=== PATIENT | male | born 1960 | race Caucasian/White ===

== ENCOUNTER 2017-11-22 11:04 | Observation (INO) | payer OTHER ==
[2017-11-22 12:07] LABS: ABNORMAL IP MESSAGE 1; HEMATOCRIT 37.9 % (42.0-52.0); HEMOGLOBIN 12.7 g/dl (14.0-18.0); MEAN CORPUSCULAR HEMOGLOBIN 35.2 pg (29.0-33.0); MEAN CORPUSCULAR HGB CONC 33.5 g/dl (32.0-37.0); MEAN PLATELET VOLUME 10.8 fl (7.4-10.4); PLATELET COUNT 54 10^3/UL (140-415); POSITIVE DIFF @See below; RED BLOOD COUNT 3.61 10^6/ul (4.70-6.10); RED CELL DISTRIBUTION WIDTH 14.3 % (11.5-14.5)
[2017-11-22 12:07] LABS: WHITE BLOOD COUNT 4.8 10^3/ul (4.8-10.8)
[2017-11-22 12:09] LABS: ADD MAN DIFF? YES
[2017-11-22 12:30] LABS: ANION GAP 13 (8-16); BLOOD UREA NITROGEN 10 mg/dl (7-20); CALCIUM 8.9 mg/dl (8.4-10.2); CARBON DIOXIDE 24 mmol/L (21-31); CHLORIDE 113 mmol/L (97-110); CREATININE 0.58 mg/dl (0.61-1.24); GLUCOSE 92 mg/dl (70-220); POTASSIUM 3.9 mmol/L (3.5-5.1); SODIUM 146 mmol/L (135-144)
[2017-11-22 12:38] LABS: ANISOCYTOSIS 1+ (0-0); BAND NEUTROPHILS #M 0.4 10^3/ul (0.0-0.6); BAND NEUTROPHILS % (M) 9 % (0-4); EOSINOPHILS % (M) 1 % (0-7); HYPOCHROMASIA 1+ (0-0); LYMPHOCYTES #M 0.8 10^3/ul (0.8-2.9); LYMPHOCYTES % (M) 18 % (15-51); METAMYELOCYTES %M 2 % (0-0); MONOCYTE #M 0.5 10^3/ul (0.3-0.9); MONOCYTES % (M) 11 % (0-11); MYELOCYTES % (M) 2 % (0-0); PLATELET ESTIMATE DECREASED; POLYCHROMASIA 1+ (0-0); SEG NEUT #M 2.8 10^3/ul (1.6-7.5); SEGMENTED NEUTROPHILS (M) % 57 % (39-77); SMUDGE%M 4 % (0-0)
[2017-11-22 12:40] LABS: TROPONIN-I < 0.012 ng/ml (0.00-0.12)
[2017-11-22] MEDS ORDERED: NACL 0.9% 3 ML SYG IV (14:00)
[2017-11-22] MEDS ORDERED: HYDROCODONE/APAP (5/325) TAB PO (14:00)
[2017-11-22] MEDS ORDERED: morphine 2 MG INJ IV (14:00)
[2017-11-22] MEDS ORDERED: ONDANSETRON 4 MG INJ IV (14:00)
[2017-11-22 14:28] LABS: ALANINE AMINOTRANSFERASE 40 IU/L (13-69); ALBUMIN 3.6 g/dl (3.3-4.9); ALKALINE PHOSPHATASE 211 IU/L (42-121); ASPARTATE AMINO TRANSFERASE 105 IU/L (15-46); BILIRUBIN,INDIRECT 2.9 mg/dl (0-1.1); BILIRUBIN,TOTAL 3.4 mg/dl (0.2-1.3); TOTAL PROTEIN 8.6 g/dl (6.1-8.1)
[2017-11-22 14:32] LABS: C-REACTIVE PROTEIN 0.8 mg/dl (0.0-0.9)
[2017-11-22 14:37] LABS: LACTATE DEHYDROGENASE 617 IU/L (313-618)
[2017-11-22] MEDS ORDERED: morphine LIQ (10 MG/5 ML) CUP PO (15:15)
[2017-11-22] MEDS: GABAPENTIN 300 MG CAP PO ×2 (15:21→20:55)
[2017-11-22 15:23] LABS: ERYTHROCYTE SEDIMENTATION RATE 50 mm/Hr (0-20)
[2017-11-22 16:06] LABS: B-TYPE NATRIURETIC PEPTIDE 152 PG/ML (0-125)
[2017-11-22 16:46] LABS: FREE T4 (FREE THYROXINE) 1.92 ng/dl (0.64-1.79)
[2017-11-22 17:11] LABS: HIV 1&2 ANTIBODY NEGATIVE (NEGATIVE)
[2017-11-22 17:35] LABS: FOLATE 13.6 ng/ml (2.8-20.0)
[2017-11-22 18:12] LABS: HAAIG REFLEX REFLEX FILED
[2017-11-22 18:37] LABS: INR 1.53; PARTIAL THROMBOPLASTIN TIME 40.7 Sec (25.0-35.0); PROTIME 18.7 Sec (11.9-14.9); PT RATIO 1.5
[2017-11-22 18:42] LABS: CREATINE KINASE 170 IU/L (23-200)
[2017-11-22 18:53] LABS: CK INDEX 0.8
[2017-11-22 18:56] LABS: CK-MB 1.42 ng/ml (0.0-2.4); TROPONIN-I < 0.012 ng/ml (0.00-0.12)
[2017-11-22 19:11] LABS: HEPATITIS B SURFACE ANTIGEN NEGATIVE (NEGATIVE)
[2017-11-22 19:18] LABS: ALPHA FETOPROTEIN 7.43 IU/L (0.00-7.21)
[2017-11-22 19:29] LABS: HEPATITIS B CORE ANTIBODY NEGATIVE (NEGATIVE); HEPATITIS C VIRAL ANTIBODY NEGATIVE (NEGATIVE)
[2017-11-22] MEDS: ACETAMINOPHEN 325 MG TAB PO (23:35)
[2017-11-23 00:01] LABS: CREATINE KINASE 142 IU/L (23-200)
[2017-11-23 00:13] LABS: CK INDEX 0.7
[2017-11-23 00:14] LABS: CK-MB 0.99 ng/ml (0.0-2.4); TROPONIN-I < 0.012 ng/ml (0.00-0.12)
[2017-11-23 05:06] LABS: ADD MAN DIFF? NO
[2017-11-23 05:15] LABS: ABNORMAL IP MESSAGE 1; BASOPHIL # 0.1 10^3/ul (0.0-0.1); BASOPHILS % 1.4 % (0.0-2.0); EOSINOPHILS # 0.1 10^3/ul (0.0-0.5); EOSINOPHILS % 3.5 % (0.0-7.0); HEMATOCRIT 34.8 % (42.0-52.0); HEMOGLOBIN 11.8 g/dl (14.0-18.0); LYMPHOCYTES # 0.9 10^3/ul (0.8-2.9); LYMPHOCYTES % 26.3 % (15.0-51.0); MEAN CORPUSCULAR HEMOGLOBIN 35.4 pg (29.0-33.0); MEAN CORPUSCULAR HGB CONC 33.9 g/dl (32.0-37.0); MEAN CORPUSCULAR VOLUME 104.5 fl (82.0-101.0); MEAN PLATELET VOLUME 11.2 fl (7.4-10.4); MONOCYTE # 0.5 10^3/ul (0.3-0.9); MONOCYTES % 15.3 % (0.0-11.0); NEUTROPHIL # 1.8 10^3/ul (1.6-7.5); NEUTROPHILS % 52.9 % (39.0-77.0); PLATELET COUNT 42 10^3/UL (140-415); POSITIVE DIFF @See below; RED BLOOD COUNT 3.33 10^6/ul (4.70-6.10); RED CELL DISTRIBUTION WIDTH 14.5 % (11.5-14.5)
[2017-11-23 05:15] LABS: WHITE BLOOD COUNT 3.5 10^3/ul (4.8-10.8)
[2017-11-23 05:31] LABS: PHOSPHORUS 3.3 mg/dl (2.5-4.9)
[2017-11-23 05:31] LABS: CHOL/HDL RATIO 3.3 RATIO; CHOLESTEROL 90 mg/dl (100-200); HDL CHOLESTEROL 27 mg/dl (28-71); LDL CHOLESTEROL,CALCULATED 53 mg/dl; TRIGLYCERIDES 50 mg/dl (0-149)
[2017-11-23 05:34] LABS: INR 1.72; PROTIME 20.5 Sec (11.9-14.9); PT RATIO 1.6
[2017-11-23 05:35] LABS: PARTIAL THROMBOPLASTIN TIME 43.1 Sec (25.0-35.0)
[2017-11-23 05:37] LABS: HEMOGLOBIN A1C 4.7 % (0-5.9)
[2017-11-23 05:39] LABS: ALANINE AMINOTRANSFERASE 46 IU/L (13-69); ALBUMIN 2.7 g/dl (3.3-4.9); ALBUMIN/GLOBULIN RATIO 0.61; ALKALINE PHOSPHATASE 200 IU/L (42-121); ANION GAP 10 (8-16); ASPARTATE AMINO TRANSFERASE 88 IU/L (15-46); BLOOD UREA NITROGEN 10 mg/dl (7-20); CALCIUM 8.6 mg/dl (8.4-10.2); CARBON DIOXIDE 27 mmol/L (21-31); CHLORIDE 113 mmol/L (97-110); CREATININE 0.71 mg/dl (0.61-1.24); GLUCOSE 90 mg/dl (70-220); POTASSIUM 4.3 mmol/L (3.5-5.1); SODIUM 146 mmol/L (135-144); TOTAL PROTEIN 7.1 g/dl (6.1-8.1)
[2017-11-23] MEDS: BARIUM SULF 2% 450 ML BTL (BERRY SMOOTHIE) PO (06:22)
[2017-11-23] MEDS: SOD CHLORIDE 0.9% 100 ML (07:45)
[2017-11-23] MEDS: IOHEXOL 300MG/ML 150 ML BTL (07:45)
[2017-11-23] MEDS: GABAPENTIN 300 MG CAP PO ×2 (08:53→12:47)
[2017-11-23] MEDS ORDERED: INSULIN ASPART [NOVOLOG] 3 ML PEN SC (09:00)
[2017-11-24] MEDS ORDERED: ACCU-CHEK XX (02:00)
[2017-11-24 10:36] LABS: MITOCHONDRIAL TB NEGATIVE (NEGATIVE); SMOOTH MUSCLE AB SCREEN NEGATIVE (NEGATIVE)
[2017-11-24 12:53] LABS: HAPTOGLOBIN <15 mg/dL (43-212)
[2017-11-24 13:37] LABS: ANA SCREEN NEGATIVE (NEGATIVE)
== END 2017-11-23 15:19 | disposition home or self-care (01) ==
LOC: E/R 11:04 → MS3 13:01
DX: R07.89 Other chest pain (principal); K70.30 Alcoholic cirrhosis of liver without ascites; D53.9 Nutritional anemia, unspecified; D69.6 Thrombocytopenia, unspecified; G62.9 Polyneuropathy, unspecified
CPT/HCPCS: 36415; 71045; 74177; 76705; 80048; 80053; 80061; 80076; 82105; 82550; 82553; 82607; 82728; 82746; 83010; 83036; 83615; 83735; 83880; 84100; 84439; 84443; 84484; 85025; 85610; 85651; 85730; 86038; 86140; 86255; 86703; 86704; 86709; 86803; 87340; 93005; 93306; 99285-25

== ENCOUNTER 2018-08-28 11:58 | Observation (INO) | payer OTHER ==
[2018-08-28] MEDS: ONDANSETRON 4 MG INJ IV (12:55)
[2018-08-28] MEDS: NITROGLYCERIN 2% 1 GM OINT PKT TD (12:55)
[2018-08-28] MEDS: ASPIRIN 81 MG TAB PO (12:55)
[2018-08-28] MEDS: morphine 4 MG/ML VIAL IV (12:55)
[2018-08-28 13:05] LABS: ADD MAN DIFF? NO
[2018-08-28 13:08] LABS: WHITE BLOOD COUNT 6.5 10^3/ul (4.8-10.8)
[2018-08-28 13:08] LABS: ABNORMAL IP MESSAGE 1; BASOPHIL # 0.1 10^3/ul (0.0-0.1); BASOPHILS % 0.8 % (0.0-2.0); EOSINOPHILS # 0.1 10^3/ul (0.0-0.5); HEMOGLOBIN 11.7 g/dl (14.0-18.0); LYMPHOCYTES # 1.3 10^3/ul (0.8-2.9); MEAN CORPUSCULAR HEMOGLOBIN 34.4 pg (29.0-33.0); MEAN CORPUSCULAR HGB CONC 34.4 g/dl (32.0-37.0); MEAN PLATELET VOLUME 10.4 fl (7.4-10.4); MONOCYTE # 0.7 10^3/ul (0.3-0.9); NEUTROPHIL # 4.3 10^3/ul (1.6-7.5); NEUTROPHILS % 66.3 % (39.0-77.0); PLATELET COUNT 78 10^3/UL (140-415); POSITIVE DIFF @See below; RED CELL DISTRIBUTION WIDTH 15.2 % (11.5-14.5)
[2018-08-28 13:27] LABS: INR 1.66; PROTIME 19.7 Sec (11.9-14.9); PT RATIO 1.5
[2018-08-28 13:28] LABS: PARTIAL THROMBOPLASTIN TIME 45.1 Sec (23.0-35.0)
[2018-08-28 13:31] LABS: ALANINE AMINOTRANSFERASE 36 IU/L (13-69); ALKALINE PHOSPHATASE 226 IU/L (42-121); ANION GAP 5 (5-13); ASPARTATE AMINO TRANSFERASE 85 IU/L (15-46); BILIRUBIN,INDIRECT 3.5 mg/dl (0-1.1); BLOOD UREA NITROGEN 7 mg/dl (7-20); CALCIUM 8.4 mg/dl (8.4-10.2); CARBON DIOXIDE 24 mmol/L (21-31); CHLORIDE 110 mmol/L (97-110); CREATININE 0.64 mg/dl (0.61-1.24); Estimated GFR > 60 mL/min (>60); GLUCOSE 106 mg/dl (70-220); POTASSIUM 3.7 mmol/L (3.5-5.1); SODIUM 139 mmol/L (135-144)
[2018-08-28 13:32] LABS: ALBUMIN 2.9 g/dl (3.3-4.9); ALBUMIN/GLOBULIN RATIO 0.59; BILIRUBIN,TOTAL 3.9 mg/dl (0.2-1.3); TOTAL PROTEIN 7.8 g/dl (6.1-8.1)
[2018-08-28 13:42] LABS: TROPONIN-I < 0.012 ng/ml (0.000-0.120)
[2018-08-28] MEDS ORDERED: ACETAMINOPHEN 325 MG TAB PO ×2 (14:30→15:00)
[2018-08-28] MEDS ORDERED: ONDANSETRON 4 MG INJ IV ×2 (14:30→15:00)
[2018-08-28] MEDS ORDERED: DOCUSATE SODIUM 100 MG CAP PO (15:00)
[2018-08-28] MEDS ORDERED: ZOLPIDEM 5 MG TAB PO (15:00)
[2018-08-28] MEDS ORDERED: morphine 2 MG INJ IV (15:00)
[2018-08-28] MEDS ORDERED: NITROGLYCERIN (SL) 0.4 MG TAB SL (15:00)
[2018-08-28] MEDS ORDERED: NACL 0.9% 3 ML SYG IV (15:00)
[2018-08-28 15:25] LABS: HAAIG REFLEX REFLEX FILED
[2018-08-28 16:05] LABS: HEPATITIS B SURFACE ANTIGEN NEGATIVE (NEGATIVE)
[2018-08-28 16:23] LABS: HEPATITIS B CORE ANTIBODY NEGATIVE (NEGATIVE); HEPATITIS C VIRAL ANTIBODY NEGATIVE (NEGATIVE)
[2018-08-28 16:40] LABS: FOLATE 18.1 ng/ml (2.8-20.0)
[2018-08-28 17:34] LABS: ANISOCYTOSIS 1+ (0-0); BAND NEUTROPHILS % (M) 1 % (0-4); EOSINOPHILS % (M) 2 % (0-7); ERYTHROBLAST% (NRBC) (M) 3 % (0-0); GIANT THROMBO% (M) 1 % (0-0); LYMPHOCYTES % (M) 16 % (15-51); MONOCYTE #M 0.5 10^3/ul (0.3-0.9); MONOCYTES % (M) 8 % (0-11); MYELOCYTES % (M) 1 % (0-0); PLATELET ESTIMATE DECREASED; POIKILOCYTOSIS 1+ (0-0); POLYCHROMASIA 1+ (0-0); SEG NEUT #M 4.7 10^3/ul (1.6-7.5); SEGMENTED NEUTROPHILS (M) % 72 % (39-77); SMUDGE%M 4 % (0-0)
[2018-08-28] MEDS: HYDROCODONE/APAP (5/325) TAB PO (17:51)
[2018-08-28 18:59] LABS: TROPONIN-I < 0.012 ng/ml (0.000-0.120)
[2018-08-28 19:32] LABS: LIPASE 192 U/L (23-300)
[2018-08-28 19:32] LABS: AMYLASE 128 U/L (11-123)
[2018-08-28] MEDS: GABAPENTIN 300 MG CAP PO (20:50)
[2018-08-29 01:22] LABS: TROPONIN-I < 0.012 ng/ml (0.000-0.120)
[2018-08-29] MEDS: GABAPENTIN 300 MG CAP PO ×2 (08:00→13:25)
[2018-08-29 08:30] LABS: ADD MAN DIFF? NO
[2018-08-29 08:37] LABS: ABNORMAL IP MESSAGE 1; BASOPHILS % 0.6 % (0.0-2.0); EOSINOPHILS # 0.2 10^3/ul (0.0-0.5); EOSINOPHILS % 3.3 % (0.0-7.0); HEMATOCRIT 32.4 % (42.0-52.0); LYMPHOCYTES # 1.2 10^3/ul (0.8-2.9); LYMPHOCYTES % 22.4 % (15.0-51.0); MEAN CORPUSCULAR HEMOGLOBIN 34.5 pg (29.0-33.0); MEAN CORPUSCULAR VOLUME 101.6 fl (82.0-101.0); MEAN PLATELET VOLUME 10.9 fl (7.4-10.4); MONOCYTE # 0.6 10^3/ul (0.3-0.9); MONOCYTES % 11.6 % (0.0-11.0); NEUTROPHIL # 3.2 10^3/ul (1.6-7.5); NEUTROPHILS % 61.7 % (39.0-77.0); PLATELET COUNT 70 10^3/UL (140-415); POSITIVE DIFF @See below; RED BLOOD COUNT 3.19 10^6/ul (4.70-6.10); RED CELL DISTRIBUTION WIDTH 14.9 % (11.5-14.5)
[2018-08-29 08:37] LABS: WHITE BLOOD COUNT 5.2 10^3/ul (4.8-10.8)
[2018-08-29 08:52] LABS: CREATINE KINASE 98 IU/L (23-200)
[2018-08-29] MEDS ORDERED: ENOXAPARIN 40 MG/0.4 ML SYG SC (09:00)
[2018-08-29 09:04] LABS: CK-MB 0.97 ng/ml (0.0-2.4); TROPONIN-I < 0.012 ng/ml (0.000-0.120)
[2018-08-29 09:05] LABS: HEMOGLOBIN A1C 4.7 % (0-5.9)
[2018-08-29 09:13] LABS: MAGNESIUM 1.8 mg/dl (1.7-2.5)
[2018-08-29 09:13] LABS: PHOSPHORUS 2.9 mg/dl (2.5-4.9)
[2018-08-29 09:15] LABS: ALANINE AMINOTRANSFERASE 33 IU/L (13-69); ALBUMIN 2.5 g/dl (3.3-4.9); ALBUMIN/GLOBULIN RATIO 0.53; ALKALINE PHOSPHATASE 184 IU/L (42-121); ANION GAP 11 (5-13); ASPARTATE AMINO TRANSFERASE 68 IU/L (15-46); BILIRUBIN,INDIRECT 3.1 mg/dl (0-1.1); BILIRUBIN,TOTAL 3.3 mg/dl (0.2-1.3); BLOOD UREA NITROGEN 9 mg/dl (7-20); CALCIUM 8.3 mg/dl (8.4-10.2); CARBON DIOXIDE 23 mmol/L (21-31); CHLORIDE 108 mmol/L (97-110); CHOL/HDL RATIO 2.3 RATIO; CHOLESTEROL 93 mg/dl (100-200); Estimated GFR > 60 mL/min (>60); GLUCOSE 76 mg/dl (70-220); HDL CHOLESTEROL 39 mg/dl (28-71); LDL CHOLESTEROL,CALCULATED 44 mg/dl; POTASSIUM 4.4 mmol/L (3.5-5.1); SODIUM 142 mmol/L (135-144); TOTAL PROTEIN 7.2 g/dl (6.1-8.1); TRIGLYCERIDES 51 mg/dl (0-149)
[2018-08-29] MEDS: REGADENOSON 0.4 MG/5 ML SYG (09:30)
[2018-08-30] MEDS ORDERED: ASPIRIN 81 MG TAB PO (09:00)
== END 2018-08-29 16:49 | disposition home or self-care (01) ==
LOC: E/R 11:58 → TEL 14:16
DX: R07.9 Chest pain, unspecified (principal); D53.9 Nutritional anemia, unspecified; R74.0 Nonspecific elevation of levels of transaminase and lactic acid dehydrogenase [LDH]; G62.9 Polyneuropathy, unspecified; D69.6 Thrombocytopenia, unspecified; R94.31 Abnormal electrocardiogram [ECG] [EKG]; I10 Essential (primary) hypertension; K70.9 Alcoholic liver disease, unspecified
CPT/HCPCS: 36415; 71045; 76705; 78452; 80053; 80061; 82150; 82550; 82553; 82607; 82746; 83036; 83690; 83735; 84100; 84484; 85025; 85610; 85730; 86704; 86709; 86803; 87340; 93005; 93017; 93306; 96374; 96375; 99285-25; G0378

== ENCOUNTER 2018-09-27 06:42 | Emergency (ER) | payer OTHER ==
[2018-09-27 07:32] LABS: ADD MAN DIFF? NO
[2018-09-27 07:36] LABS: ABNORMAL IP MESSAGE 1; BASOPHIL # 0.1 10^3/ul (0.0-0.1); BASOPHILS % 0.9 % (0.0-2.0); EOSINOPHILS # 0.1 10^3/ul (0.0-0.5); EOSINOPHILS % 1.9 % (0.0-7.0); HEMATOCRIT 35.9 % (42.0-52.0); HEMOGLOBIN 12.5 g/dl (14.0-18.0); LYMPHOCYTES # 1.4 10^3/ul (0.8-2.9); LYMPHOCYTES % 21.8 % (15.0-51.0); MEAN CORPUSCULAR HEMOGLOBIN 34.5 pg (29.0-33.0); MEAN CORPUSCULAR HGB CONC 34.8 g/dl (32.0-37.0); MEAN CORPUSCULAR VOLUME 99.2 fl (82.0-101.0); MEAN PLATELET VOLUME 9.9 fl (7.4-10.4); MONOCYTE # 0.6 10^3/ul (0.3-0.9); NEUTROPHIL # 4.1 10^3/ul (1.6-7.5); NEUTROPHILS % 64.9 % (39.0-77.0); PLATELET COUNT 69 10^3/UL (140-415); POSITIVE DIFF @See below; RED BLOOD COUNT 3.62 10^6/ul (4.70-6.10); RED CELL DISTRIBUTION WIDTH 15.8 % (11.5-14.5)
[2018-09-27 07:36] LABS: WHITE BLOOD COUNT 6.4 10^3/ul (4.8-10.8)
[2018-09-27] MEDS: FAMOTIDINE 20 MG TAB PO (07:41)
[2018-09-27] MEDS: BELLADONNA/PHENOBARBITAL TAB PO (07:41)
[2018-09-27] MEDS: ONDANSETRON 4 MG INJ IV (07:41)
[2018-09-27] MEDS: LIDOCAINE/MYLANTA 40 ML BTL PO (07:41)
[2018-09-27] MEDS: SOD CHLORIDE 0.9% 1,000 ML IV (07:41)
[2018-09-27] MEDS: KETOROLAC 15 MG INJ IV (07:42)
[2018-09-27 07:55] LABS: ALANINE AMINOTRANSFERASE 23 IU/L (13-69); ALBUMIN 2.9 g/dl (3.3-4.9); ALBUMIN/GLOBULIN RATIO 0.54; ALKALINE PHOSPHATASE 342 IU/L (42-121); ANION GAP 8 (5-13); ASPARTATE AMINO TRANSFERASE 53 IU/L (15-46); BILIRUBIN,INDIRECT 2.8 mg/dl (0-1.1); BILIRUBIN,TOTAL 2.8 mg/dl (0.2-1.3); BLOOD UREA NITROGEN 6 mg/dl (7-20); CALCIUM 8.4 mg/dl (8.4-10.2); CARBON DIOXIDE 22 mmol/L (21-31); CHLORIDE 112 mmol/L (97-110); CREATININE 0.69 mg/dl (0.61-1.24); Estimated GFR > 60 mL/min (>60); GLUCOSE 106 mg/dl (70-220); LIPASE 85 U/L (23-300); POTASSIUM 3.4 mmol/L (3.5-5.1); SODIUM 142 mmol/L (135-144); TOTAL PROTEIN 8.2 g/dl (6.1-8.1)
[2018-09-27 08:02] LABS: ADD UMIC NO; ETHANOL < 10.0 mg/dl (0-0); UR ASCORBIC ACID NEGATIVE (NEGATIVE); UR BILIRUBIN (Dip) NEGATIVE (NEGATIVE); UR BLOOD (Dip) NEGATIVE (NEGATIVE); UR CALCIUM OXALATE CRYSTAL MANY /HPF (NONE SEEN); UR CLARITY SLIGHTLY CLOUDY (CLEAR); UR COLOR AMBER (YELLOW); UR GLUCOSE (Dip) NEGATIVE (NEGATIVE); UR KETONES (Dip) NEGATIVE (NEGATIVE); UR LEUKOCYTE ESTERASE (Dip) NEGATIVE Leu/ul (NEGATIVE); UR NITRITE (Dip) NEGATIVE (NEGATIVE); UR RBC 1 /HPF (0-5); UR SPECIFIC GRAVITY (Dip) 1.014 (1.003-1.030); UR TOTAL PROTEIN (Dip) NEGATIVE (NEGATIVE); UR UROBILINOGEN (Dip) 2+ mg/dL (NEGATIVE); UR WBC 3 /HPF (0-5)
[2018-09-27 08:06] LABS: INR 1.58; PT RATIO 1.5; TROPONIN-I < 0.012 ng/ml (0.000-0.120)
[2018-09-27 08:07] LABS: PARTIAL THROMBOPLASTIN TIME 43.1 Sec (23.0-35.0)
[2018-09-27] MEDS: PIPER-TAZO 3.375 GM IV (PMX) 100 ML IVPB (11:05)
== END 2018-09-27 12:52 | disposition left against medical advice (07) ==
LOC: E/R 06:42
DX: K81.9 Cholecystitis, unspecified (principal); R19.7 Diarrhea, unspecified; I10 Essential (primary) hypertension; Z87.891 Personal history of nicotine dependence
CPT/HCPCS: 36415; 74176; 76705; 80053; 80307; 81001; 81003; 83690; 84484; 85025; 85610; 85730; 93005; 96374; 96375; 99285-25

== ENCOUNTER 2018-09-28 07:00 | Inpatient (IN) | payer OTHER ==
[2018-09-28 09:12] LABS: ADD MAN DIFF? NO
[2018-09-28 09:14] LABS: WHITE BLOOD COUNT 5.2 10^3/ul (4.8-10.8)
[2018-09-28 09:14] LABS: ABNORMAL IP MESSAGE 1; BASOPHILS % 0.8 % (0.0-2.0); EOSINOPHILS # 0.1 10^3/ul (0.0-0.5); EOSINOPHILS % 2.5 % (0.0-7.0); HEMATOCRIT 34.9 % (42.0-52.0); HEMOGLOBIN 11.8 g/dl (14.0-18.0); LYMPHOCYTES # 1.2 10^3/ul (0.8-2.9); LYMPHOCYTES % 22.7 % (15.0-51.0); MEAN CORPUSCULAR HEMOGLOBIN 33.9 pg (29.0-33.0); MEAN CORPUSCULAR HGB CONC 33.8 g/dl (32.0-37.0); MEAN CORPUSCULAR VOLUME 100.3 fl (82.0-101.0); MEAN PLATELET VOLUME 10.8 fl (7.4-10.4); MONOCYTE # 0.6 10^3/ul (0.3-0.9); MONOCYTES % 12.2 % (0.0-11.0); NEUTROPHIL # 3.2 10^3/ul (1.6-7.5); NEUTROPHILS % 61.4 % (39.0-77.0); PLATELET COUNT 73 10^3/UL (140-415); POSITIVE DIFF @See below; RED BLOOD COUNT 3.48 10^6/ul (4.70-6.10); RED CELL DISTRIBUTION WIDTH 15.9 % (11.5-14.5)
[2018-09-28 09:36] LABS: ALANINE AMINOTRANSFERASE 22 IU/L (13-69); ALBUMIN 2.8 g/dl (3.3-4.9); ALBUMIN/GLOBULIN RATIO 0.57; ALKALINE PHOSPHATASE 346 IU/L (42-121); ANION GAP 6 (5-13); ASPARTATE AMINO TRANSFERASE 54 IU/L (15-46); BILIRUBIN,INDIRECT 2.7 mg/dl (0-1.1); BILIRUBIN,TOTAL 2.7 mg/dl (0.2-1.3); BLOOD UREA NITROGEN 9 mg/dl (7-20); CARBON DIOXIDE 27 mmol/L (21-31); CHLORIDE 111 mmol/L (97-110); CREATININE 0.75 mg/dl (0.61-1.24); Estimated GFR > 60 mL/min (>60); GLUCOSE 101 mg/dl (70-220); SODIUM 144 mmol/L (135-144); TOTAL PROTEIN 7.7 g/dl (6.1-8.1)
[2018-09-28] MEDS: PIPER-TAZO 3.375 GM IV (PMX) 100 ML IVPB (10:50)
[2018-09-28] MEDS ORDERED: SOD CHLORIDE 0.9% 1,000 ML IV (11:02)
[2018-09-28] MEDS ORDERED: ONDANSETRON 4 MG INJ IV (11:30)
[2018-09-28] MEDS ORDERED: ACETAMINOPHEN 325 MG TAB PO (11:30)
[2018-09-28 13:32] LABS: INR 1.61; PROTIME 19.2 Sec (11.9-14.9); PT RATIO 1.5
[2018-09-28 14:34] LABS: HEPATITIS C VIRAL ANTIBODY NEGATIVE (NEGATIVE)
[2018-09-28] MEDS ORDERED: LORAZEPAM 2 MG INJ IV (15:30)
[2018-09-28] MEDS: DEXTROSE 5%-0.45% NACL 1,000 ML IV (17:24)
[2018-09-28] MEDS: CHLORDIAZEPOXIDE 25 MG CAP PO (21:12)
[2018-09-29] MEDS ORDERED: MULTIVITAMINS 10 ML, THIAMINE 100 MG, FOLIC ACID 1 MG in SOD CHLORIDE 0.9% 1,000 ML IVPB (09:00)
== END 2018-09-28 21:41 | disposition left against medical advice (07) | DRG 446 ==
LOC: E/R 07:00 → 2NE 11:03
DX: K80.10 Calculus of gallbladder with chronic cholecystitis without obstruction (principal); K70.30 Alcoholic cirrhosis of liver without ascites; E80.6 Other disorders of bilirubin metabolism; Z72.0 Tobacco use; G62.9 Polyneuropathy, unspecified
CPT/HCPCS: 36415; 74181; 76705; 80053; 85025; 85610; 86803; 96374; 99285-25

== ENCOUNTER 2018-10-22 12:41 | Emergency (ER) | payer OTHER | END 2018-10-22 16:29 | disposition home or self-care (01) | LOC: FTE 12:41 | DX: S00.83XA Contusion of other part of head, initial encounter (principal); R07.89 Other chest pain; F17.210 Nicotine dependence, cigarettes, uncomplicated; W18.39XA Other fall on same level, initial encounter; Y92.9 Unspecified place or not applicable | CPT/HCPCS: 70450; 70486; 71045; 93005; 99285 ==

== ENCOUNTER 2018-12-15 13:01 | Emergency (ER) | payer OTHER ==
[2018-12-15] MEDS: HYDROCODONE/APAP (5/325) TAB PO (13:36)
== END 2018-12-15 14:21 | disposition home or self-care (01) ==
LOC: FTE 14:21
DX: L03.115 Cellulitis of right lower limb (principal); F17.210 Nicotine dependence, cigarettes, uncomplicated
CPT/HCPCS: 99283; Z7502

== ENCOUNTER 2018-12-18 14:25 | Emergency (ER) | payer OTHER | END 2018-12-18 15:44 | disposition home or self-care (01) | LOC: FTE 14:25 | DX: Z48.01 Encounter for change or removal of surgical wound dressing (principal); Z87.891 Personal history of nicotine dependence | CPT/HCPCS: 99282; Z7502 ==